=== PATIENT | female | born 1970 | race Caucasian/White ===

== ENCOUNTER 2023-09-16 10:40 | Emergency (ER) | payer OTHER ==
[2023-09-16] MEDS: Diphtheria,Pertussis(Acell),Tetanus Vaccine 0.5 ML Syringe IM ONE (11:38)
[2023-09-16] MEDS: Octyl 2-Cyanoacrylate 1 g/1 mL 1 APPLIC PEN TOP ONE (11:38)
== END 2023-09-16 12:11 | disposition home or self-care (01) ==
LOC: MW.ED 10:40
DX: S61.012A Laceration without foreign body of left thumb without damage to nail, initial encounter (principal); I10 Essential (primary) hypertension; E78.00 Pure hypercholesterolemia, unspecified; J45.909 Unspecified asthma, uncomplicated; E11.9 Type 2 diabetes mellitus without complications; Z86.16 Personal history of COVID-19; Z75.8 Other problems related to medical facilities and other health care; Z23 Encounter for immunization; W27.5XXA Contact with paper-cutter, initial encounter
CPT/HCPCS: 12001; 90471; 90715; 99282; A9270